=== PATIENT | male | born 1980 | race Native Hawaiian/Other Pacific Islander ===

== ENCOUNTER 2017-07-04 02:16 | Emergency (ER) | payer OTHER ==
[~2017-07-04] VITALS: Ht 172.7 cm; Wt 86.2 kg
[2017-07-04 03:15] LABS: PLATELET COUNT 206 K/uL (142-355)
[2017-07-04 03:19] LABS: POTASSIUM 3.9 mmol/L (3.6-5.2); SODIUM 143 mmol/L (136-145)
[2017-07-04 06:36] VITALS: BP 145/72; TEMP 97.8
== END 2017-07-04 06:45 ==
LOC: ED 02:16
DX: N20.1 Calculus of ureter (principal); R11.2 Nausea with vomiting, unspecified; R10.9 Unspecified abdominal pain
CPT/HCPCS: 36415; 80053; 82150; 83690; 85027; 96374; 96375; 99284; J1170; J1885; J2405; Q9963

== ENCOUNTER 2020-12-28 12:16 | Emergency (ER) | payer OTHER ==
[~2020-12-28] VITALS: Ht 172.7 cm; Wt 81.6 kg
[2020-12-28 12:16] VITALS: TEMP 97.9
[2020-12-28 14:23] VITALS: BP 114/68
== END 2020-12-28 14:23 | disposition home or self-care (01) ==
LOC: ED 12:24
PROC: 0HQ0XZZ Repair Scalp Skin, External Approach (ICD-10-PCS; principal; 2020-12-28)
DX: S01.01XA Laceration without foreign body of scalp, initial encounter (principal); W20.8XXA Other cause of strike by thrown, projected or falling object, initial encounter; Y92.89 Other specified places as the place of occurrence of the external cause
CPT/HCPCS: 96374; 99284; J1885